=== PATIENT | female | born 1965 | race Two or more races ===

== ENCOUNTER 2024-02-05 10:00 | Outpatient (AMB) | payer MEDICAID, SELFPAY ==
[2024-02-05 10:17] VITALS: PULSE 77; RESP 18; TEMP 36.4; O2SAT 93
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
== END 2024-02-05 10:37 | disposition home or self-care (01) ==
LOC: HODSRG 10:00
PROVIDERS: PCP Hospitalist; Referring Provider Hospitalist; Supervising Provider Orthopaedic Surgery Adult Reconstructive Orthopaedic Surgery; Visit Provider Orthopaedic Surgery Adult Reconstructive Orthopaedic Surgery
DX: S72.001D Fracture of unspecified part of neck of right femur, subsequent encounter for closed fracture with routine healing (principal); X58.XXXD Exposure to other specified factors, subsequent encounter; M25.551 Pain in right hip; F20.9 Schizophrenia, unspecified; Z99.3 Dependence on wheelchair
CPT/HCPCS: 99213; G0463